=== PATIENT | male | born 1960 | race Caucasian/White ===

== ENCOUNTER 2020-05-15 07:36 | Day surgery (SDC) | payer OTHER ==
[~2020-05-15] VITALS: Ht 167.6 cm; Wt 87.5 kg
[2020-05-15 08:36] VITALS: BP 154/88
[2020-05-15 15:31] VITALS: BP 153/87
== END 2020-05-15 15:20 | disposition home or self-care (01) ==
LOC: GI 07:36 → OR 12:00 → GI 12:00
PROVIDERS: ATTEND Internal Medicine Gastroenterology
DX: R19.5 Other fecal abnormalities (principal); K57.30 Diverticulosis of large intestine without perforation or abscess without bleeding; Z79.82 Long term (current) use of aspirin
CPT/HCPCS: 45378; J1200; J1610; J2250; J2310; J3010; J3490